=== PATIENT | male | born 1980 | race African-American/Black ===

== ENCOUNTER 2019-12-11 11:44 | Emergency (ER) | payer SELFPAY ==
[2019-12-11 11:54] VITALS: TEMP 98.1; BMI 19.5
--- OUTSIDE RECORDS SUMMARY | 2019-12-11 12:00 | XMS ---
:1980 Author Organization [facility] Support Name Relationship Address Phone UE Unavailable Unavailable Unavailable KELLY BROTHER [address] [place] [address] Re-disclosure Warning The records that you are about to access may contain information from federally- assisted alcohol or drug abuse programs. If such information is present, then the following federally mandated warning applies: This information has been disclosed to you from records protected by federal confidentiality rules (42 CFR part 2). The federal rules prohibit you from making any further disclosure of this information unless further disclosure is expressly permitted by the written consent of the person to whom it pertains or as otherwise permitted by 42 CFR part 2. A general authorization for the release of medical or other information is NOT sufficient for this purpose. The Federal rules restrict any use of the information to criminally investigate or prosecute any alcohol or drug abuse patient.The records that you are about to access may contain highly sensitive health information, the redisclosure of which is protected by Article 27-F of the [facility] Public Health law. If you continue you may haveaccess to information: Regarding HIV / AIDS; Provided by facilities licensed or operated by the [facility] Office of Mental Health; or Provided by the [facility] Office for People With Developmental Disabilities. If such information is present, then the following [facility] mandated warning applies: This information has been disclosed to you from confidential records which are protected by state law. State law prohibits you from making any further disclosure of this information without the specific written consent of the person to whom it pertains, or as otherwise permitted by law. Any unauthorized further disclosure in violation of state law may result in a fine or chcf sentence or both. A general authorization for the release of medical or other information is NOT sufficient authorization for further disclosure. Insurance Providers Payer name Policy type Policy ID Covered Covered constitution party's Policy P lilibeth / Coverage constitution party ID relationship to [facility] [employer] [facility] type g[facility] SELF PAY SP INSURANCE
[2019-12-11] MEDS ORDERED: ONDANSETRON 4 MG/2 ML VIAL IVPUSH ONE (12:16)
[2019-12-11] MEDS ORDERED: SODIUM CHLORIDE 1,000 ML IV STA (12:16)
--- NOTE | 2019-12-11 12:50 | PDOC ---
History of Present Illness - General Chief Complaint: Pain Stated Complaint: ABD PAIN Time Seen by Provider: 12/11/19 12:01 History Source: Patient Exam Limitations: No Limitations - History of Present Illness Travel History: No Initial Comments: 12/11/19 12:19 39-year-old male presents the ED with complaints of left-sided abdominal cramping yesterday accompanied with continuous vomiting and mild nausea today. Patient states on Thursday evening had bought what he thought was smoked pork realizing after he ate it due to the texture that it was raw pork. Patient denies any diarrhea, fever, chills GI history or medical history. Timing/Duration: reports: intermittent Quality: reports: mild, cramping Abdominal Pain Onset Location: reports: generalized abdomen (Today) Pain Radiation: reports: no radiation Activities at Onset: reports: none Aggravating Factors: improves with: None Alleviating Factors: improves with: None Past History - Travel History Traveled outside of the country in the last 30 days: No Close contact w/someone who was outside of country & ill: No - Medical History Allergies/Adverse Reactions: Allergies Allergy/AdvReac Type Severity Reaction Status Date / Time No Known Allergies Allergy Verified 12/11/19 11:54 Home Medications: Ambulatory Orders Acetaminophen [Tylenol] 650 mg PO Q4H PRN 12/11/19 COPD: No - Psycho-Social/Smoking History Patient Lives Alone: No Lives with/in: spouse/SO Smoking History: Never smoked Abd/GI Specific PMHX - Complaint Specific PMHX Colitis: No Review of Systems - Review of Systems Able to Perform ROS?: Yes Constitutional: No: Symptoms Reported HEENTM: No: Symptoms Reported Respiratory: No: Symptoms reported Cardiac (ROS): No: Symptoms Reported ABD/GI: Yes: Vomiting, Abdominal cramping Musculoskeletal: No: Symptoms Reported Integumentary: No: Symptoms Reported Neurological: No: Symptoms reported *Physical Exam - Vital Signs Last Vital Signs Temp Pulse Resp BP Pulse Ox 98.1 F 91 H 18 134/87 100 12/11/19 11:50 12/11/19 11:50 12/11/19 11:50 12/11/19 11:50 12/11/19 11:50 - Physical Exam General Appearance: Yes: Nourished, Appropriately Dressed. No: Apparent D istress HEENT: positive: EOMI, JARRED, TMs Normal, Pharynx Normal. negative: Pale Conjunctivae Neck: positive: Supple Respiratory/Chest: negative: Respiratory Distress Gastrointestinal/Abdominal: positive: Normal Bowel Sounds, Soft. negative: Distended, Tenderness Musculoskeletal: negative: CVA Tenderness Extremity: positive: Normal Inspection Integumentary: positive: Normal Color, Warm, Moist Neurologic: positive: Motor Strength 5/5 (Ambulatory) ED Treatment Course - LABORATORY CBC & Chemistry Diagram: 12/11/19 13:10 12/11/19 13:10 Medical Decision Making - Medical Decision Making 12/11/19 13:07 Chief complaint: Left abdominal pain now mild generalized over the past 2 days accompanied with vomiting. Patient attributes to eating well pork 2 days prior. No other complaints no medical history. Exam: Patient with normal physical exam. No abdominal tenderness. Plan: Labs, fluids, urine and antiemetics 12/11/19 15:04 Laboratory Tests 12/11/19 12/11/19 12/11/19 13:10 13:10 14:00 WBC 3.3 L Hgb 13.7 Hct 42.1 Absolute Neuts (auto) 1.2 L Neutrophils % 35.9 L Lymphocytes % 54.4 H Sodium 139 Potassium 4.8 Chloride 103 Carbon Dioxide 32 Anion Gap 3 L BUN 23.2 H Total Bilirubin 0.4 AST 33 ALT 27 Total Protein 8.6 H Urine Ketones Negative Urine Blood Negative Urine Nitrite Negative Ur Leukocyte Esterase Negative , Patient states feeling better. Patient denies unprotected sex and is refusing HIV testing. Based on lab work and complaints, patient concerning trichinosis. Unable to find lab to send off patient will be given referral to infectious disease if symptoms continue Discharge - Discharge Information Problems reviewed: Yes Clinical Impression/Diagnosis: Vomiting Condition: Good - Follow up/Referral Referrals: Tomi Ovalles MD [Staff Physician] - - Patient Discharge Instructions Additional Instructions: At this time I recommend follow-up with infectious disease if your symptoms continue for further work-up. In the meanwhile eat bland soft foods for the next 72 hours and then may advance as tolerated - Post Discharge Activity
[2019-12-11 13:33] LABS: BASO % 1.4 % (0-2.0); EOS % 1.8 % (0-4.5); HEMATOCRIT 42.1 % (35.4-49); HEMOGLOBIN 13.7 GM/dL (11.7-16.9); LYMPH % 54.4 % (8-40); MCH 27.2 pg (25.7-33.7); MCHC 32.5 g/dl (32.0-35.9); MEAN CELL VOLUME 83.9 fl (80-96); MEAN PLT VOLUME 10.1 fl (7.5-11.1); MONO % 6.5 % (3.8-10.2); NEUT % 35.9 % (42.8-82.8); PLATELET COUNT 170 K/MM3 (134-434); RBC 5.02 M/mm3 (4.00-5.60); RDW 14.6 % (11.9-15.9); WHITE BLOOD COUNT 3.3 K/mm3 (4.0-10.0)
[2019-12-11 14:03] LABS: ALBUMIN 4.1 g/dl (3.4-5.0); BILIRUBIN,TOTAL 0.4 mg/dL (0.2-1); BLOOD UREA NITROGEN 23.2 mg/dL (7-18); CALCIUM 10.1 mg/dL (8.5-10.1); CREATININE 1.2 mg/dL (0.55-1.3); POTASSIUM 4.8 mmol/L (3.5-5.1); TOT PROT 8.6 g/dl (6.4-8.2)
[2019-12-11 14:53] LABS: PH,URINE 5.5 (5.0-8.0); URINE APPEARANCE CLEAR; URINE BILIRUBIN NEGATIVE (NEGATIVE); URINE COLOR YELLOW; URINE GLUCOSE (UA) NEGATIVE (NEGATIVE); URINE KETONE NEGATIVE (NEGATIVE); URINE LEUK ESTERASE NEGATIVE (NEGATIVE); URINE NITRITE NEGATIVE (NEGATIVE); URINE PROTEIN NEGATIVE (NEGATIVE); URINE UROBILINOGEN 0.2 mg/dL (0.2-1.0)
[2019-12-11 15:54] VITALS: BP 124/81; PULSE 64
--- NOTE | 2019-12-12 14:07 | EKG ---
Test Reason : Blood Pressure : / mmHG Vent. Rate : 062 BPM Atrial Rate : 062 BPM P-R Int : 146 ms QRS Dur : 088 ms QT Int : 362 ms P-R-T Axes : 067 061 065 degrees QTc Int : 367 ms NORMAL SINUS RHYTHM WITH SINUS ARRHYTHMIA MODERATE VOLTAGE CRITERIA FOR LVH, MAY BE NORMAL VARIANT ACUTE PERICARDITIS ABNORMAL ECG NO PREVIOUS ECGS AVAILABLE Confirmed by MARISSA ROPER MD ([id number]) on 12/12/2019 2:06:54 PM Referred By: Confirmed By:MARISSA ROPER MD
== END 2019-12-11 15:54 | disposition home or self-care (01) ==
LOC: JER 11:44
PROC: 3E0333Z Introduction of Anti-inflammatory into Peripheral Vein, Percutaneous Approach (ICD-10-PCS; principal; 2019-12-11)
PROC: 3E0337Z Introduction of Electrolytic and Water Balance Substance into Peripheral Vein, Percutaneous Approach (ICD-10-PCS; 2019-12-11)
DX: R11.10 Vomiting, unspecified (principal)
CPT/HCPCS: 36415; 80053; 80074; 81003; 83690; 85025; 93005; 93010; 99284-25